=== PATIENT | female | born 1945 | race Caucasian/White ===

== ENCOUNTER 2020-04-17 11:44 | Outpatient (REF) | payer MEDICARE, SELFPAY | END 2020-04-17 11:45 | disposition home or self-care (01) | LOC: HO.BBR 11:44 | PROVIDERS: PCP Internal Medicine; Visit Provider Internal Medicine Hematology & Oncology | DX: D75.1 Secondary polycythemia (principal) | CPT/HCPCS: 85014; 99195 ==

== ENCOUNTER 2020-05-15 10:44 | Outpatient (REF) | payer MEDICARE, SELFPAY | END 2020-05-15 10:45 | disposition home or self-care (01) | LOC: HO.BBR 10:44 | PROVIDERS: PCP Internal Medicine; Visit Provider Internal Medicine Hematology & Oncology | DX: D45 Polycythemia vera (principal) | CPT/HCPCS: 85014; 99195 ==

== ENCOUNTER 2020-06-12 11:16 | Outpatient (REF) | payer MEDICARE, SELFPAY | END 2020-06-12 11:17 | disposition home or self-care (01) | LOC: HO.BBR 11:16 | PROVIDERS: Visit Provider Internal Medicine Hematology & Oncology | DX: D45 Polycythemia vera (principal) | CPT/HCPCS: 36415; 85014; 85018; 99195 ==

== ENCOUNTER 2020-07-18 10:52 | Outpatient (REF) | payer MEDICARE, SELFPAY | END 2020-07-18 10:53 | disposition home or self-care (01) | LOC: HO.BBR 10:52 | PROVIDERS: Visit Provider Internal Medicine Hematology & Oncology | DX: D45 Polycythemia vera (principal) | CPT/HCPCS: 36415; 85014; 85018; 99195 ==

== ENCOUNTER 2020-08-22 11:33 | Outpatient (REF) | payer MEDICARE, SELFPAY ==
[2020-08-22 11:50] LABS: Hematocrit 44.4 % (37-47); Hemoglobin 12.4 g/dl (12.0-16.0)
== END 2020-08-22 11:34 | disposition home or self-care (01) ==
LOC: HO.BBR 11:33
PROVIDERS: Visit Provider Internal Medicine Hematology & Oncology
DX: D45 Polycythemia vera (principal)
CPT/HCPCS: 36415; 85014; 85018; 99195

== ENCOUNTER 2020-09-19 11:41 | Outpatient (REF) | payer MEDICARE, SELFPAY ==
[2020-09-19 11:51] LABS: Hematocrit 45.5 % (37-47); Hemoglobin 12.7 g/dl (12.0-16.0)
== END 2020-09-19 11:42 | disposition home or self-care (01) ==
LOC: HO.BBR 11:41
PROVIDERS: Visit Provider Internal Medicine Hematology & Oncology
DX: D45 Polycythemia vera (principal)
CPT/HCPCS: 36415; 85014; 85018; 99195

== ENCOUNTER 2020-10-20 12:00 | Outpatient (REF) | payer MEDICARE, SELFPAY | END 2020-10-20 12:01 | disposition home or self-care (01) | LOC: HO.BBR 12:00 | PROVIDERS: Visit Provider Internal Medicine Hematology & Oncology | DX: D45 Polycythemia vera (principal) | CPT/HCPCS: 36415; 85014; 85018; 99195 ==

== ENCOUNTER 2020-11-24 11:58 | Outpatient (REF) | payer MEDICARE, SELFPAY | END 2020-11-24 11:59 | disposition home or self-care (01) | LOC: HO.BBR 11:58 | PROVIDERS: Visit Provider Internal Medicine Hematology & Oncology | DX: D45 Polycythemia vera (principal) | CPT/HCPCS: 85014; 85018; 99195 ==

== ENCOUNTER 2020-12-26 11:56 | Outpatient (REF) | payer MEDICARE, SELFPAY ==
[2020-12-26 12:11] LABS: Hematocrit 42.9 % (37-47); Hemoglobin 12.2 g/dl (12.0-16.0)
== END 2020-12-26 11:57 | disposition home or self-care (01) ==
LOC: HO.BBR 11:56
PROVIDERS: Visit Provider Internal Medicine Hematology & Oncology
DX: D45 Polycythemia vera (principal)
CPT/HCPCS: 36415; 85014; 85018; 99195

== ENCOUNTER 2021-01-23 11:55 | Outpatient (REF) | payer MEDICARE, SELFPAY | END 2021-01-23 11:56 | disposition home or self-care (01) | LOC: HO.BBR 11:55 | PROVIDERS: Visit Provider Internal Medicine Hematology & Oncology | DX: D45 Polycythemia vera (principal) | CPT/HCPCS: 85014; 85018; 99195 ==

== ENCOUNTER 2021-02-23 11:49 | Outpatient (REF) | payer MEDICARE, SELFPAY ==
[2021-02-23 12:09] LABS: Hematocrit 40.9 % (37-47); Hemoglobin 11.4 g/dl (12.0-16.0)
== END 2021-02-23 11:50 | disposition home or self-care (01) ==
LOC: HO.BBR 11:49
PROVIDERS: Visit Provider Internal Medicine Hematology & Oncology
DX: D45 Polycythemia vera (principal)
CPT/HCPCS: 36415; 85014; 85018; 99195

== ENCOUNTER 2021-03-19 11:53 | Outpatient (REF) | payer MEDICARE, SELFPAY ==
[2021-03-19 12:07] LABS: MANUAL DIFF FLAG NO
[2021-03-19 12:08] LABS: Basophils Absolute Auto 0.2 X10*3/uL (0.0-0.2); Basophils Percent Auto 0.8 % (0-2); Eosinophils Absolute Auto 0.4 X10*3/uL (0.0-0.4); Hematocrit 42.9 % (37-47); Hemoglobin 12.2 g/dl (12.0-16.0); Imm Gran Abs Auto 0.28 X10*3/uL (0.00-0.03); Imm Gran Pct Auto 1.3 % (0.0-0.4); Lymphocytes Absolute Auto 2.5 X10*3/uL (1.2-4.9); Lymphocytes Percent Auto 12.1 % (20-40); Mean Corpuscular HGB Conc 28.4 g/dl (31.0-35.0); Mean Corpuscular Hemoglobin 18.8 pg (27.0-33.0); Mean Corpuscular Volume 66.1 fL (80-98); Mean Platelet Volume 9.5 fL (9.4-12.3); Monocytes Absolute Auto 0.7 X10*3/uL (0.1-1.2); Monocytes Percent Auto 3.5 % (2-11); Neutrophils Absolute Auto 16.9 X10*3/uL (2.0-8.3); Neutrophils Percent Auto 80.3 % (45-73); Platelet Count 566 X10*3/uL (160-400); Red Blood Count 6.49 X10*6/uL (4.20-5.50)
== END 2021-03-19 11:54 | disposition home or self-care (01) ==
LOC: HO.BBR 11:53
PROVIDERS: Visit Provider Internal Medicine Hematology & Oncology
DX: D45 Polycythemia vera (principal)
CPT/HCPCS: 36415; 85025

== ENCOUNTER 2021-04-20 11:49 | Outpatient (REF) | payer MEDICARE, SELFPAY ==
[2021-04-20 12:09] LABS: MANUAL DIFF FLAG NO
[2021-04-20 12:11] LABS: Basophils Absolute Auto 0.2 X10*3/uL (0.0-0.2); Basophils Percent Auto 0.9 % (0-2); Eosinophils Absolute Auto 0.3 X10*3/uL (0.0-0.4); Eosinophils Percent Auto 1.9 % (0-4); Hematocrit 45.8 % (37-47); Imm Gran Pct Auto 1.2 % (0.0-0.4); Lymphocytes Absolute Auto 2.1 X10*3/uL (1.2-4.9); Mean Corpuscular HGB Conc 28.4 g/dl (31.0-35.0); Mean Corpuscular Hemoglobin 18.5 pg (27.0-33.0); Mean Corpuscular Volume 65.3 fL (80-98); Mean Platelet Volume 9.6 fL (9.4-12.3); Monocytes Absolute Auto 0.6 X10*3/uL (0.1-1.2); Monocytes Percent Auto 3.6 % (2-11); Neutrophils Absolute Auto 13.7 X10*3/uL (2.0-8.3); Neutrophils Percent Auto 80.4 % (45-73); Platelet Count 591 X10*3/uL (160-400); Red Blood Count 7.01 X10*6/uL (4.20-5.50); Red Cell Distribution Width 20.5 % (11.0-16.0); White Blood Count 17.1 X10*3/uL (4.8-10.8)
== END 2021-04-20 11:50 | disposition home or self-care (01) ==
LOC: HO.BBR 11:49
PROVIDERS: Visit Provider Internal Medicine Hematology & Oncology
DX: D45 Polycythemia vera (principal)
CPT/HCPCS: 36415; 85014; 85018; 85025; 99195

== ENCOUNTER 2021-05-22 11:55 | Outpatient (REF) | payer MEDICARE, SELFPAY ==
[2021-05-22 12:05] LABS: MANUAL DIFF FLAG NO
[2021-05-22 12:09] LABS: Basophils Absolute Auto 0.2 X10*3/uL (0.0-0.2); Basophils Percent Auto 0.9 % (0-2); Eosinophils Absolute Auto 0.5 X10*3/uL (0.0-0.4); Eosinophils Percent Auto 2.4 % (0-4); Hemoglobin 12.1 g/dl (12.0-16.0); Imm Gran Abs Auto 0.24 X10*3/uL (0.00-0.03); Imm Gran Pct Auto 1.3 % (0.0-0.4); Lymphocytes Absolute Auto 2.5 X10*3/uL (1.2-4.9); Lymphocytes Percent Auto 13.4 % (20-40); Mean Corpuscular HGB Conc 28.1 g/dl (31.0-35.0); Mean Corpuscular Hemoglobin 18.5 pg (27.0-33.0); Mean Corpuscular Volume 65.6 fL (80.0-98.0); Mean Platelet Volume 9.3 fL (9.4-12.3); Monocytes Absolute Auto 0.7 X10*3/uL (0.1-1.2); Monocytes Percent Auto 3.9 % (2-11); Neutrophils Absolute Auto 14.8 x10*3/uL (2.0-8.3); Neutrophils Percent Auto 78.1 % (45-73); Platelet Count 652 X10*3/uL (160-400); Red Blood Count 6.55 X10*6/uL (4.20-5.50); Red Cell Distribution Width 19.9 % (11.0-16.0); White Blood Count 18.9 X10*3/uL (4.8-10.8)
== END 2021-05-22 11:56 | disposition home or self-care (01) ==
LOC: HO.BBR 11:55
PROVIDERS: Visit Provider Internal Medicine Hematology & Oncology
DX: D45 Polycythemia vera (principal)
CPT/HCPCS: 36415; 85014; 85018; 85025; 99195

== ENCOUNTER 2021-06-26 11:58 | Outpatient (REF) | payer MEDICARE, SELFPAY ==
[2021-06-26 12:14] LABS: MANUAL DIFF FLAG NO
[2021-06-26 12:19] LABS: Basophils Absolute Auto 0.2 X10*3/uL (0.0-0.2); Basophils Percent Auto 0.8 % (0-2); Eosinophils Absolute Auto 0.5 X10*3/uL (0.0-0.4); Eosinophils Percent Auto 2.5 % (0-4); Hematocrit 45.7 % (37.0-47.0); Hemoglobin 12.8 g/dl (12.0-16.0); Imm Gran Abs Auto 0.32 X10*3/uL (0.00-0.03); Imm Gran Pct Auto 1.6 % (0.0-0.4); Lymphocytes Absolute Auto 2.5 X10*3/uL (1.2-4.9); Lymphocytes Percent Auto 12.5 % (20-40); Mean Corpuscular Hemoglobin 18.4 pg (27.0-33.0); Mean Corpuscular Volume 65.7 fL (80.0-98.0); Mean Platelet Volume 9.4 fL (9.4-12.3); Monocytes Absolute Auto 0.6 X10*3/uL (0.1-1.2); Monocytes Percent Auto 3.1 % (2-11); Neutrophils Absolute Auto 15.9 x10*3/uL (2.0-8.3); Neutrophils Percent Auto 79.5 % (45-73); Platelet Count 659 X10*3/uL (160-400); Red Blood Count 6.96 X10*6/uL (4.20-5.50); Red Cell Distribution Width 20.1 % (11.0-16.0)
== END 2021-06-26 11:59 | disposition home or self-care (01) ==
LOC: HO.BBR 11:58
PROVIDERS: Visit Provider Internal Medicine Hematology & Oncology
DX: D45 Polycythemia vera (principal)
CPT/HCPCS: 36415; 85025; 99195

== ENCOUNTER 2021-07-26 11:56 | Outpatient (REF) | payer MEDICARE, SELFPAY ==
[2021-07-26 12:14] LABS: MANUAL DIFF FLAG NO
[2021-07-26 12:19] LABS: Basophils Absolute Auto 0.2 X10*3/uL (0.0-0.2); Basophils Percent Auto 0.9 % (0-2); Eosinophils Absolute Auto 0.4 X10*3/uL (0.0-0.4); Eosinophils Percent Auto 2.4 % (0-4); Hematocrit 41.3 % (37.0-47.0); Hemoglobin 11.7 g/dl (12.0-16.0); Imm Gran Abs Auto 0.17 X10*3/uL (0.00-0.03); Lymphocytes Absolute Auto 2.2 X10*3/uL (1.2-4.9); Lymphocytes Percent Auto 12.9 % (20-40); Mean Corpuscular HGB Conc 28.3 g/dl (31.0-35.0); Mean Corpuscular Hemoglobin 18.5 pg (27.0-33.0); Mean Corpuscular Volume 65.2 fL (80.0-98.0); Mean Platelet Volume 9.6 fL (9.4-12.3); Monocytes Absolute Auto 0.6 X10*3/uL (0.1-1.2); Monocytes Percent Auto 3.5 % (2-11); Neutrophils Absolute Auto 13.2 x10*3/uL (2.0-8.3); Neutrophils Percent Auto 79.3 % (45-73); Platelet Count 608 X10*3/uL (160-400); Red Blood Count 6.33 X10*6/uL (4.20-5.50); Red Cell Distribution Width 19.9 % (11.0-16.0); White Blood Count 16.7 X10*3/uL (4.8-10.8)
== END 2021-07-26 11:57 | disposition home or self-care (01) ==
LOC: HO.BBR 11:56
PROVIDERS: Visit Provider Internal Medicine Hematology & Oncology
DX: D45 Polycythemia vera (principal)
CPT/HCPCS: 36415; 85018; 85025; 99195

== ENCOUNTER 2021-08-30 11:54 | Outpatient (REF) | payer MEDICARE, SELFPAY ==
[2021-08-30 12:03] LABS: MANUAL DIFF FLAG NO
[2021-08-30 12:05] LABS: Basophils Absolute Auto 0.2 X10*3/uL (0.0-0.2); Basophils Percent Auto 0.7 % (0-2); Eosinophils Absolute Auto 0.5 X10*3/uL (0.0-0.4); Eosinophils Percent Auto 2.4 % (0-4); Hematocrit 43.5 % (37.0-47.0); Hemoglobin 11.9 g/dl (12.0-16.0); Imm Gran Abs Auto 0.36 X10*3/uL (0.00-0.03); Imm Gran Pct Auto 1.7 % (0.0-0.4); Lymphocytes Absolute Auto 2.3 X10*3/uL (1.2-4.9); Lymphocytes Percent Auto 11.2 % (20-40); Mean Corpuscular HGB Conc 27.4 g/dl (31.0-35.0); Mean Corpuscular Volume 65.8 fL (80.0-98.0); Mean Platelet Volume 9.3 fL (9.4-12.3); Monocytes Absolute Auto 0.7 X10*3/uL (0.1-1.2); Monocytes Percent Auto 3.2 % (2-11); Neutrophils Absolute Auto 16.8 x10*3/uL (2.0-8.3); Neutrophils Percent Auto 80.8 % (45-73); Platelet Count 624 X10*3/uL (160-400); Red Blood Count 6.61 X10*6/uL (4.20-5.50); Red Cell Distribution Width 20.5 % (11.0-16.0); White Blood Count 20.8 X10*3/uL (4.8-10.8)
== END 2021-08-30 11:55 | disposition home or self-care (01) ==
LOC: HO.BBR 11:54
PROVIDERS: Visit Provider Internal Medicine Hematology & Oncology
DX: D45 Polycythemia vera (principal)
CPT/HCPCS: 36415; 85014; 85018; 85025; 99195

== ENCOUNTER 2021-09-28 11:54 | Outpatient (REF) | payer MEDICARE, SELFPAY ==
[2021-09-28 12:08] LABS: MANUAL DIFF FLAG NO
[2021-09-28 12:09] LABS: Basophils Absolute Auto 0.2 X10*3/uL (0.0-0.2); Basophils Percent Auto 0.8 % (0-2); Eosinophils Absolute Auto 0.4 X10*3/uL (0.0-0.4); Hemoglobin 12.5 g/dl (12.0-16.0); Imm Gran Abs Auto 0.23 X10*3/uL (0.00-0.03); Imm Gran Pct Auto 1.2 % (0.0-0.4); Lymphocytes Absolute Auto 2.1 X10*3/uL (1.2-4.9); Lymphocytes Percent Auto 10.8 % (20-40); Mean Corpuscular HGB Conc 27.8 g/dl (31.0-35.0); Mean Corpuscular Hemoglobin 18.2 pg (27.0-33.0); Mean Corpuscular Volume 65.4 fL (80.0-98.0); Mean Platelet Volume 9.5 fL (9.4-12.3); Monocytes Absolute Auto 0.5 X10*3/uL (0.1-1.2); Monocytes Percent Auto 2.6 % (2-11); Neutrophils Absolute Auto 15.7 x10*3/uL (2.0-8.3); Neutrophils Percent Auto 82.6 % (45-73); Platelet Count 593 X10*3/uL (160-400); Red Blood Count 6.88 X10*6/uL (4.20-5.50); Red Cell Distribution Width 20.7 % (11.0-16.0)
== END 2021-09-28 11:55 | disposition home or self-care (01) ==
LOC: HO.BBR 11:54
PROVIDERS: Visit Provider Internal Medicine Hematology & Oncology
DX: D45 Polycythemia vera (principal)
CPT/HCPCS: 36415; 85014; 85018; 85025; 99195

== ENCOUNTER 2021-10-29 13:54 | Outpatient (REF) | payer MEDICARE, SELFPAY ==
[2021-10-29 14:08] LABS: MANUAL DIFF FLAG NO
[2021-10-29 14:09] LABS: Basophils Absolute Auto 0.1 X10*3/uL (0.0-0.2); Basophils Percent Auto 0.7 % (0-2); Eosinophils Absolute Auto 0.4 X10*3/uL (0.0-0.4); Eosinophils Percent Auto 2.3 % (0-4); Hematocrit 43.9 % (37.0-47.0); Hemoglobin 12.4 g/dl (12.0-16.0); Imm Gran Abs Auto 0.17 X10*3/uL (0.00-0.03); Lymphocytes Absolute Auto 2.1 X10*3/uL (1.2-4.9); Lymphocytes Percent Auto 11.5 % (20-40); Mean Corpuscular HGB Conc 28.2 g/dl (31.0-35.0); Mean Corpuscular Hemoglobin 18.4 pg (27.0-33.0); Mean Corpuscular Volume 65.1 fL (80.0-98.0); Mean Platelet Volume 9.1 fL (9.4-12.3); Monocytes Absolute Auto 0.6 X10*3/uL (0.1-1.2); Monocytes Percent Auto 3.3 % (2-11); Neutrophils Absolute Auto 14.5 x10*3/uL (2.0-8.3); Neutrophils Percent Auto 81.2 % (45-73); Platelet Count 544 X10*3/uL (160-400); Red Blood Count 6.74 X10*6/uL (4.20-5.50); White Blood Count 17.8 X10*3/uL (4.8-10.8)
== END 2021-10-29 13:55 | disposition home or self-care (01) ==
LOC: HO.BBR 13:54
PROVIDERS: Visit Provider Internal Medicine Hematology & Oncology
DX: D45 Polycythemia vera (principal)
CPT/HCPCS: 36415; 85014; 85018; 85025; 99195

== ENCOUNTER 2021-11-27 10:53 | Outpatient (REF) | payer MEDICARE, SELFPAY ==
[2021-11-27 11:07] LABS: Basophils Absolute Auto 0.2 X10*3/uL (0.0-0.2); Basophils Percent Auto 0.8 % (0-2); Eosinophils Absolute Auto 0.4 X10*3/uL (0.0-0.4); Hematocrit 47.6 % (37.0-47.0); Imm Gran Abs Auto 0.18 X10*3/uL (0.00-0.03); Imm Gran Pct Auto 0.9 % (0.0-0.4); Lymphocytes Absolute Auto 1.7 X10*3/uL (1.2-4.9); MANUAL DIFF FLAG NO; Mean Corpuscular HGB Conc 27.3 g/dl (31.0-35.0); Mean Corpuscular Hemoglobin 18.2 pg (27.0-33.0); Mean Corpuscular Volume 66.7 fL (80.0-98.0); Mean Platelet Volume 9.3 fL (9.4-12.3); Monocytes Absolute Auto 0.5 X10*3/uL (0.1-1.2); Monocytes Percent Auto 2.4 % (2-11); Neutrophils Absolute Auto 16.3 x10*3/uL (2.0-8.3); Neutrophils Percent Auto 84.9 % (45-73); Platelet Count 596 X10*3/uL (160-400); Red Blood Count 7.14 X10*6/uL (4.20-5.50); Red Cell Distribution Width 21.2 % (11.0-16.0); White Blood Count 19.2 X10*3/uL (4.8-10.8)
== END 2021-11-27 10:54 | disposition home or self-care (01) ==
LOC: HO.BBR 10:53
PROVIDERS: Visit Provider Internal Medicine Hematology & Oncology
DX: D45 Polycythemia vera (principal)
CPT/HCPCS: 36415; 85014; 85025; 99195

== ENCOUNTER 2021-12-28 12:00 | Outpatient (REF) | payer MEDICARE, SELFPAY ==
[2021-12-28 12:23] LABS: Basophils Absolute Auto 0.1 X10*3/uL (0.0-0.2); Basophils Percent Auto 0.7 % (0-2); Eosinophils Absolute Auto 0.4 X10*3/uL (0.0-0.4); Hematocrit 42.7 % (37.0-47.0); Imm Gran Abs Auto 0.22 X10*3/uL (0.00-0.03); Imm Gran Pct Auto 1.2 % (0.0-0.4); Lymphocytes Percent Auto 10.7 % (20-40); MANUAL DIFF FLAG SCAN; Mean Corpuscular HGB Conc 28.1 g/dl (31.0-35.0); Mean Corpuscular Hemoglobin 18.6 pg (27.0-33.0); Mean Corpuscular Volume 66.1 fL (80.0-98.0); Mean Platelet Volume 9.6 fL (9.4-12.3); Monocytes Absolute Auto 0.5 X10*3/uL (0.1-1.2); Monocytes Percent Auto 2.7 % (2-11); Neutrophils Absolute Auto 15.8 x10*3/uL (2.0-8.3); Neutrophils Percent Auto 82.7 % (45-73); Platelet Count 586 X10*3/uL (160-400); Red Blood Count 6.46 X10*6/uL (4.20-5.50); Red Cell Distribution Width 19.9 % (11.0-16.0); SCAN SMEAR FLAG 1; White Blood Count 19.1 X10*3/uL (4.8-10.8)
[2021-12-28 12:53] LABS: SLIDE REVIEW VERIFIED
== END 2021-12-28 12:01 | disposition home or self-care (01) ==
LOC: HO.BBR 12:00
PROVIDERS: Visit Provider Internal Medicine Hematology & Oncology
DX: D45 Polycythemia vera (principal)
CPT/HCPCS: 36415; 85014; 85018; 85025; 99195

== ENCOUNTER 2022-01-24 11:53 | Outpatient (REF) | payer MEDICARE, SELFPAY | END 2022-01-24 11:54 | disposition home or self-care (01) | LOC: HO.BBR 11:53 | PROVIDERS: Visit Provider Internal Medicine Hematology & Oncology | DX: D45 Polycythemia vera (principal) | CPT/HCPCS: 85014 ==

== ENCOUNTER 2022-02-28 12:54 | Outpatient (REF) | payer MEDICARE, SELFPAY | END 2022-02-28 12:55 | disposition home or self-care (01) | LOC: HO.BBR 12:54 | PROVIDERS: Visit Provider Internal Medicine Hematology & Oncology | DX: D45 Polycythemia vera (principal) | CPT/HCPCS: 85014; 99195 ==

== ENCOUNTER 2022-04-05 11:51 | Outpatient (REF) | payer MEDICARE, SELFPAY ==
[2022-04-05 12:07] LABS: MANUAL DIFF FLAG NO
[2022-04-05 12:11] LABS: Basophils Absolute Auto 0.2 X10*3/uL (0.0-0.2); Basophils Percent Auto 0.9 % (0-2); Eosinophils Absolute Auto 0.5 X10*3/uL (0.0-0.4); Eosinophils Percent Auto 2.2 % (0-4); Hematocrit 45.4 % (37.0-47.0); Hemoglobin 12.5 g/dl (12.0-16.0); Imm Gran Abs Auto 0.26 X10*3/uL (0.00-0.03); Imm Gran Pct Auto 1.2 % (0.0-0.4); Lymphocytes Percent Auto 9.4 % (20-40); Mean Corpuscular HGB Conc 27.5 g/dl (31.0-35.0); Mean Corpuscular Hemoglobin 18.1 pg (27.0-33.0); Mean Corpuscular Volume 65.9 fL (80.0-98.0); Mean Platelet Volume 9.4 fL (9.4-12.3); Monocytes Absolute Auto 0.6 X10*3/uL (0.1-1.2); Monocytes Percent Auto 2.8 % (2-11); Neutrophils Absolute Auto 17.6 x10*3/uL (2.0-8.3); Neutrophils Percent Auto 83.5 % (45-73); Platelet Count 685 X10*3/uL (160-400); Red Blood Count 6.89 X10*6/uL (4.20-5.50); White Blood Count 21.1 X10*3/uL (4.8-10.8)
[2022-04-05 12:48] LABS: Alanine Aminotransferase 15 U/L (0-31); Albumin Level 4.4 g/dL (3.5-5.0); Alkaline Phosphatase 98 U/L (39-117); Anion Gap 11 (12-20); Aspartate Amino Transferase 20 U/L (5-31); Bilirubin Total 0.6 mg/dL (0.0-1.0); Blood Urea Nitrogen 9 mg/dL (9-16); Calcium 9.1 mg/dL (8.4-10.2); Carbon Dioxide 27 mmol/L (22-29); Chloride 102 mmol/L (96-108); Estimated Glomerular Filt Rate > 60; Glucose Random 114 mg/dL (60-115); Iron 17 mcg/dL (30-160); Percent Iron Saturation 4 % (15-50); Potassium 4.3 mmol/L (3.3-5.1); Sodium 136 mmol/L (135-145); Total Iron Binding Capacity 429 mcg/dL (228-428); Total Protein 7.1 g/dL (6.5-8.0); Unsaturated Iron Binding 412 ug/dL
[2022-04-05 12:54] LABS: Ferritin 2 ng/mL (10-250)
== END 2022-04-05 11:52 | disposition home or self-care (01) ==
LOC: HO.BBR 11:51
PROVIDERS: Visit Provider Internal Medicine Hematology & Oncology
DX: D45 Polycythemia vera (principal)
CPT/HCPCS: 36415; 80053; 82728; 83540; 85014; 85018; 85025; 99195

== ENCOUNTER 2022-05-06 11:57 | Outpatient (REF) | payer MEDICARE, SELFPAY ==
[2022-05-06 12:18] LABS: Basophils Absolute Auto 0.2 X10*3/uL (0.0-0.2); Basophils Percent Auto 0.9 % (0-2); Eosinophils Absolute Auto 0.4 X10*3/uL (0.0-0.4); Eosinophils Percent Auto 1.9 % (0-4); Hematocrit 41.1 % (37.0-47.0); Hemoglobin 11.3 g/dl (12.0-16.0); Imm Gran Abs Auto 0.25 X10*3/uL (0.00-0.03); Imm Gran Pct Auto 1.1 % (0.0-0.4); Lymphocytes Absolute Auto 2.5 X10*3/uL (1.2-4.9); Lymphocytes Percent Auto 11.4 % (20-40); MANUAL DIFF FLAG NO; Mean Corpuscular HGB Conc 27.5 g/dl (31.0-35.0); Mean Corpuscular Hemoglobin 17.9 pg (27.0-33.0); Mean Platelet Volume 9.4 fL (9.4-12.3); Monocytes Absolute Auto 0.7 X10*3/uL (0.1-1.2); Neutrophils Absolute Auto 18.3 x10*3/uL (2.0-8.3); Neutrophils Percent Auto 81.7 % (45-73); Platelet Count 664 X10*3/uL (160-400); Red Blood Count 6.32 X10*6/uL (4.20-5.50); Red Cell Distribution Width 19.9 % (11.0-16.0); White Blood Count 22.3 X10*3/uL (4.8-10.8)
[2022-05-06 13:24] LABS: Alanine Aminotransferase 14 U/L (0-31); Albumin Level 4.4 g/dL (3.5-5.0); Alkaline Phosphatase 103 U/L (39-117); Anion Gap 18 (12-20); Aspartate Amino Transferase 30 U/L (5-31); Bilirubin Total 0.8 mg/dL (0.0-1.0); Blood Urea Nitrogen 11 mg/dL (9-16); Calcium 9.2 mg/dL (8.4-10.2); Carbon Dioxide 21 mmol/L (22-29); Chloride 101 mmol/L (96-108); Estimated Glomerular Filt Rate > 60; Glucose Random 73 mg/dL (60-115); Iron 24 mcg/dL (30-160); Percent Iron Saturation 5 % (15-50); Potassium 4.9 mmol/L (3.3-5.1); Sodium 135 mmol/L (135-145); Total Iron Binding Capacity 446 mcg/dL (228-428); Total Protein 7.2 g/dL (6.5-8.0); Unsaturated Iron Binding 422 ug/dL
[2022-05-06 13:42] LABS: Ferritin 7 ng/mL (10-250)
== END 2022-05-06 11:58 | disposition home or self-care (01) ==
LOC: HO.BBR 11:57
PROVIDERS: Visit Provider Internal Medicine Hematology & Oncology
DX: D45 Polycythemia vera (principal)
CPT/HCPCS: 36415; 80053; 82728; 83540; 85014; 85018; 85025; 99195

== ENCOUNTER 2022-06-06 12:03 | Outpatient (REF) | payer MEDICARE, SELFPAY ==
[2022-06-06 12:22] LABS: Basophils Absolute Auto 0.2 X10*3/uL (0.0-0.2); Basophils Percent Auto 0.9 % (0-2); Eosinophils Absolute Auto 0.5 X10*3/uL (0.0-0.4); Eosinophils Percent Auto 2.2 % (0-4); Hematocrit 42.3 % (37.0-47.0); Hemoglobin 11.6 g/dl (12.0-16.0); Imm Gran Abs Auto 0.35 X10*3/uL (0.00-0.03); Imm Gran Pct Auto 1.7 % (0.0-0.4); Lymphocytes Absolute Auto 2.4 X10*3/uL (1.2-4.9); Lymphocytes Percent Auto 11.7 % (20-40); MANUAL DIFF FLAG NO; Mean Corpuscular HGB Conc 27.4 g/dl (31.0-35.0); Mean Corpuscular Volume 65.6 fL (80.0-98.0); Mean Platelet Volume 9.3 fL (9.4-12.3); Monocytes Absolute Auto 0.5 X10*3/uL (0.1-1.2); Monocytes Percent Auto 2.6 % (2-11); Neutrophils Absolute Auto 16.6 x10*3/uL (2.0-8.3); Neutrophils Percent Auto 80.9 % (45-73); Platelet Count 631 X10*3/uL (160-400); Red Blood Count 6.45 X10*6/uL (4.20-5.50); Red Cell Distribution Width 20.3 % (11.0-16.0); White Blood Count 20.5 X10*3/uL (4.8-10.8)
[2022-06-06 13:34] LABS: Alanine Aminotransferase 12 U/L (0-31); Albumin Level 4.3 g/dL (3.5-5.0); Alkaline Phosphatase 102 U/L (39-117); Anion Gap 10 (12-20); Aspartate Amino Transferase 21 U/L (5-31); Bilirubin Total 0.9 mg/dL (0.0-1.0); Blood Urea Nitrogen 8 mg/dL (9-16); Calcium 9.2 mg/dL (8.4-10.2); Carbon Dioxide 27 mmol/L (22-29); Chloride 97 mmol/L (96-108); Estimated Glomerular Filt Rate > 60; Ferritin 6 ng/mL (10-250); Glucose Random 92 mg/dL (60-115); Iron 16 mcg/dL (30-160); Percent Iron Saturation 4 % (15-50); Potassium 4.3 mmol/L (3.3-5.1); Sodium 130 mmol/L (135-145); Total Iron Binding Capacity 370 mcg/dL (228-428); Total Protein 6.9 g/dL (6.5-8.0); Unsaturated Iron Binding 354 ug/dL
== END 2022-06-06 12:04 | disposition home or self-care (01) ==
LOC: HO.BBR 12:03
PROVIDERS: Visit Provider Internal Medicine Hematology & Oncology
DX: D45 Polycythemia vera (principal)
CPT/HCPCS: 36415; 80053; 82728; 83540; 85018; 85025; 99195

== ENCOUNTER 2022-07-11 11:53 | Outpatient (REF) | payer MEDICARE, SELFPAY ==
[2022-07-11 12:10] LABS: MANUAL DIFF FLAG NO
[2022-07-11 12:16] LABS: Basophils Absolute Auto 0.2 X10*3/uL (0.0-0.2); Basophils Percent Auto 0.9 % (0-2); Eosinophils Absolute Auto 0.4 X10*3/uL (0.0-0.4); Eosinophils Percent Auto 1.9 % (0-4); Hematocrit 45.8 % (37.0-47.0); Hemoglobin 12.4 g/dl (12.0-16.0); Imm Gran Abs Auto 0.23 X10*3/uL (0.00-0.03); Imm Gran Pct Auto 1.1 % (0.0-0.4); Lymphocytes Absolute Auto 2.2 X10*3/uL (1.2-4.9); Lymphocytes Percent Auto 10.3 % (20-40); Mean Corpuscular HGB Conc 27.1 g/dl (31.0-35.0); Mean Corpuscular Volume 66.7 fL (80.0-98.0); Mean Platelet Volume 9.3 fL (9.4-12.3); Monocytes Absolute Auto 0.7 X10*3/uL (0.1-1.2); Neutrophils Percent Auto 82.8 % (45-73); Platelet Count 631 X10*3/uL (160-400); Red Blood Count 6.87 X10*6/uL (4.20-5.50); Red Cell Distribution Width 21.3 % (11.0-16.0); White Blood Count 21.7 X10*3/uL (4.8-10.8)
[2022-07-11 14:30] LABS: Alanine Aminotransferase 12 U/L (0-31); Albumin Level 4.2 g/dL (3.5-5.0); Alkaline Phosphatase 120 U/L (39-117); Anion Gap 13 (12-20); Aspartate Amino Transferase 25 U/L (5-31); Bilirubin Total 0.9 mg/dL (0.0-1.0); Blood Urea Nitrogen 7 mg/dL (9-16); Calcium 9.5 mg/dL (8.4-10.2); Carbon Dioxide 27 mmol/L (22-29); Chloride 103 mmol/L (96-108); Estimated Glomerular Filt Rate > 60; Glucose Random 108 mg/dL (60-115); Iron 17 mcg/dL (30-160); Percent Iron Saturation 5 % (15-50); Potassium 5.1 mmol/L (3.3-5.1); Sodium 138 mmol/L (135-145); Total Iron Binding Capacity 359 mcg/dL (228-428); Unsaturated Iron Binding 342 ug/dL
[2022-07-11 14:55] LABS: Ferritin 7 ng/mL (10-250)
== END 2022-07-11 11:54 | disposition home or self-care (01) ==
LOC: HO.BBR 11:53
PROVIDERS: Visit Provider Internal Medicine Hematology & Oncology
DX: D45 Polycythemia vera (principal)
CPT/HCPCS: 36415; 80053; 82728; 83540; 85018; 85025; 99195

== ENCOUNTER 2022-08-14 11:56 | Outpatient (REF) | payer MEDICARE, SELFPAY ==
[2022-08-14 12:14] LABS: MANUAL DIFF FLAG NO
[2022-08-14 12:17] LABS: Basophils Absolute Auto 0.2 X10*3/uL (0.0-0.2); Basophils Percent Auto 0.9 % (0-2); Eosinophils Absolute Auto 0.4 X10*3/uL (0.0-0.4); Eosinophils Percent Auto 2.1 % (0-4); Hematocrit 40.9 % (37.0-47.0); Hemoglobin 11.2 g/dl (12.0-16.0); Imm Gran Abs Auto 0.17 X10*3/uL (0.00-0.03); Imm Gran Pct Auto 0.9 % (0.0-0.4); Lymphocytes Percent Auto 10.4 % (20-40); Mean Corpuscular HGB Conc 27.4 g/dl (31.0-35.0); Mean Corpuscular Hemoglobin 17.7 pg (27.0-33.0); Monocytes Absolute Auto 0.6 X10*3/uL (0.1-1.2); Monocytes Percent Auto 3.2 % (2-11); Neutrophils Absolute Auto 15.4 x10*3/uL (2.0-8.3); Neutrophils Percent Auto 82.5 % (45-73); Platelet Count 592 X10*3/uL (160-400); Red Blood Count 6.31 X10*6/uL (4.20-5.50); Red Cell Distribution Width 19.5 % (11.0-16.0); White Blood Count 18.7 X10*3/uL (4.8-10.8)
[2022-08-14 12:18] LABS: Mean Corpuscular Volume 64.8 fL (80.0-98.0)
[2022-08-14 14:05] LABS: Alanine Aminotransferase 16 U/L (0-31); Albumin Level 4.2 g/dL (3.5-5.0); Alkaline Phosphatase 118 U/L (39-117); Anion Gap 16 (12-20); Aspartate Amino Transferase 26 U/L (5-31); Bilirubin Total 1.5 mg/dL (0.0-1.0); Blood Urea Nitrogen 10 mg/dL (9-16); Calcium 9.3 mg/dL (8.4-10.2); Carbon Dioxide 24 mmol/L (22-29); Chloride 102 mmol/L (96-108); Estimated Glomerular Filt Rate > 60; Glucose Random 76 mg/dL (60-115); Iron 45 mcg/dL (30-160); Percent Iron Saturation 12 % (15-50); Potassium 5.2 mmol/L (3.3-5.1); Sodium 137 mmol/L (135-145); Total Iron Binding Capacity 383 mcg/dL (228-428); Total Protein 6.8 g/dL (6.5-8.0); Unsaturated Iron Binding 338 ug/dL
[2022-08-14 14:22] LABS: Ferritin 6 ng/mL (10-250)
== END 2022-08-14 11:57 | disposition home or self-care (01) ==
LOC: HO.BBR 11:56
PROVIDERS: Visit Provider Internal Medicine Hematology & Oncology
DX: D45 Polycythemia vera (principal)
CPT/HCPCS: 36415; 80053; 82728; 83540; 85018; 85025; 99195

== ENCOUNTER 2022-09-10 11:57 | Outpatient (REF) | payer MEDICARE, SELFPAY ==
[2022-09-10 12:15] LABS: MANUAL DIFF FLAG NO
[2022-09-10 12:17] LABS: Basophils Absolute Auto 0.2 X10*3/uL (0.0-0.2); Basophils Percent Auto 1.1 % (0-2); Eosinophils Absolute Auto 0.4 X10*3/uL (0.0-0.4); Hematocrit 40.9 % (37.0-47.0); Hemoglobin 11.4 g/dl (12.0-16.0); Imm Gran Pct Auto 1.6 % (0.0-0.4); Lymphocytes Percent Auto 10.7 % (20-40); Mean Corpuscular HGB Conc 27.9 g/dl (31.0-35.0); Mean Corpuscular Hemoglobin 18.1 pg (27.0-33.0); Mean Platelet Volume 9.8 fL (9.4-12.3); Monocytes Absolute Auto 0.6 X10*3/uL (0.1-1.2); Monocytes Percent Auto 3.2 % (2-11); Neutrophils Absolute Auto 15.4 x10*3/uL (2.0-8.3); Neutrophils Percent Auto 81.4 % (45-73); Platelet Count 654 X10*3/uL (160-400); Red Cell Distribution Width 19.8 % (11.0-16.0); White Blood Count 18.9 X10*3/uL (4.8-10.8)
[2022-09-10 12:20] LABS: Mean Corpuscular Volume 64.9 fL (80.0-98.0)
[2022-09-10 13:42] LABS: Alanine Aminotransferase 11 U/L (0-31); Albumin Level 4.4 g/dL (3.5-5.0); Alkaline Phosphatase 88 U/L (39-117); Anion Gap 14 (12-20); Aspartate Amino Transferase 19 U/L (5-31); Bilirubin Total 1.3 mg/dL (0.0-1.0); Blood Urea Nitrogen 9 mg/dL (9-16); Calcium 9.6 mg/dL (8.4-10.2); Carbon Dioxide 26 mmol/L (22-29); Chloride 100 mmol/L (96-108); Estimated Glomerular Filt Rate > 60; Glucose Random 83 mg/dL (60-115); Iron 16 mcg/dL (30-160); Percent Iron Saturation 4 % (15-50); Potassium 4.5 mmol/L (3.3-5.1); Sodium 135 mmol/L (135-145); Total Iron Binding Capacity 375 mcg/dL (228-428); Total Protein 6.8 g/dL (6.5-8.0); Unsaturated Iron Binding 359 ug/dL
[2022-09-10 13:51] LABS: Ferritin 4 ng/mL (10-250)
== END 2022-09-10 11:58 | disposition home or self-care (01) ==
LOC: HO.BBR 11:57
PROVIDERS: Visit Provider Internal Medicine Hematology & Oncology
DX: D45 Polycythemia vera (principal)
CPT/HCPCS: 36415; 80053; 82728; 83540; 85018; 85025; 99195

== ENCOUNTER 2022-10-17 11:52 | Outpatient (REF) | payer MEDICARE, SELFPAY ==
[2022-10-17 12:02] LABS: MANUAL DIFF FLAG NO
[2022-10-17 12:08] LABS: Basophils Absolute Auto 0.2 X10*3/uL (0.0-0.2); Basophils Percent Auto 1.1 % (0-2); Eosinophils Absolute Auto 0.4 X10*3/uL (0.0-0.4); Hematocrit 41.6 % (37.0-47.0); Hemoglobin 11.4 g/dl (12.0-16.0); Imm Gran Pct Auto 1.1 % (0.0-0.4); Lymphocytes Percent Auto 10.4 % (20-40); Mean Corpuscular HGB Conc 27.4 g/dl (31.0-35.0); Mean Corpuscular Hemoglobin 17.6 pg (27.0-33.0); Mean Platelet Volume 9.3 fL (9.4-12.3); Monocytes Absolute Auto 0.7 X10*3/uL (0.1-1.2); Monocytes Percent Auto 3.5 % (2-11); Neutrophils Absolute Auto 15.4 x10*3/uL (2.0-8.3); Neutrophils Percent Auto 81.9 % (45-73); Platelet Count 650 X10*3/uL (160-400); Red Blood Count 6.47 X10*6/uL (4.20-5.50); Red Cell Distribution Width 20.8 % (11.0-16.0); White Blood Count 18.8 X10*3/uL (4.8-10.8)
[2022-10-17 12:11] LABS: Mean Corpuscular Volume 64.3 fL (80.0-98.0)
[2022-10-17 12:55] LABS: Alanine Aminotransferase 14 U/L (0-31); Albumin Level 4.2 g/dL (3.5-5.0); Alkaline Phosphatase 100 U/L (39-117); Anion Gap 12 (12-20); Aspartate Amino Transferase 21 U/L (5-31); Bilirubin Total 1.2 mg/dL (0.0-1.0); Blood Urea Nitrogen 8 mg/dL (9-16); Calcium 9.4 mg/dL (8.4-10.2); Carbon Dioxide 27 mmol/L (22-29); Chloride 101 mmol/L (96-108); Estimated Glomerular Filt Rate > 60; Glucose Random 86 mg/dL (60-115); Iron 19 mcg/dL (30-160); Percent Iron Saturation 5 % (15-50); Potassium 4.6 mmol/L (3.3-5.1); Sodium 135 mmol/L (135-145); Total Iron Binding Capacity 351 mcg/dL (228-428); Total Protein 6.6 g/dL (6.5-8.0); Unsaturated Iron Binding 332 ug/dL
[2022-10-17 13:11] LABS: Ferritin 5 ng/mL (10-250)
== END 2022-10-17 11:53 | disposition home or self-care (01) ==
LOC: HO.BBR 11:52
PROVIDERS: Visit Provider Internal Medicine Hematology & Oncology
DX: D45 Polycythemia vera (principal)
CPT/HCPCS: 36415; 80053; 82728; 83540; 85025

== ENCOUNTER 2022-11-19 12:28 | Outpatient (REF) | payer MEDICARE, SELFPAY ==
[2022-11-19 12:47] LABS: MANUAL DIFF FLAG NO
[2022-11-19 12:48] LABS: Basophils Absolute Auto 0.2 X10*3/uL (0.0-0.2); Eosinophils Absolute Auto 0.5 X10*3/uL (0.0-0.4); Eosinophils Percent Auto 2.4 % (0-4); Hematocrit 42.5 % (37.0-47.0); Hemoglobin 11.6 g/dl (12.0-16.0); Imm Gran Abs Auto 0.22 X10*3/uL (0.00-0.03); Imm Gran Pct Auto 1.1 % (0.0-0.4); Lymphocytes Absolute Auto 2.4 X10*3/uL (1.2-4.9); Lymphocytes Percent Auto 11.6 % (20-40); Mean Corpuscular HGB Conc 27.3 g/dl (31.0-35.0); Mean Corpuscular Hemoglobin 17.7 pg (27.0-33.0); Mean Corpuscular Volume 64.8 fL (80.0-98.0); Mean Platelet Volume 9.1 fL (9.4-12.3); Monocytes Absolute Auto 0.7 X10*3/uL (0.1-1.2); Monocytes Percent Auto 3.2 % (2-11); Neutrophils Absolute Auto 16.5 x10*3/uL (2.0-8.3); Neutrophils Percent Auto 80.7 % (45-73); Platelet Count 706 X10*3/uL (160-400); Red Blood Count 6.56 X10*6/uL (4.20-5.50); White Blood Count 20.5 X10*3/uL (4.8-10.8)
[2022-11-19 13:27] LABS: Alanine Aminotransferase 14 U/L (0-31); Albumin Level 4.3 g/dL (3.5-5.0); Alkaline Phosphatase 110 U/L (39-117); Anion Gap 11 (12-20); Aspartate Amino Transferase 22 U/L (5-31); Bilirubin Total 1.1 mg/dL (0.0-1.0); Blood Urea Nitrogen 11 mg/dL (9-16); Calcium 10.2 mg/dL (8.4-10.2); Carbon Dioxide 28 mmol/L (22-29); Chloride 102 mmol/L (96-108); Estimated Glomerular Filt Rate > 60; Glucose Random 82 mg/dL (60-115); Iron 17 mcg/dL (30-160); Percent Iron Saturation 4 % (15-50); Potassium 5.2 mmol/L (3.3-5.1); Sodium 136 mmol/L (135-145); Total Iron Binding Capacity 379 mcg/dL (228-428); Unsaturated Iron Binding 362 ug/dL
[2022-11-19 13:46] LABS: Ferritin 4 ng/mL (10-250)
== END 2022-11-19 12:29 | disposition home or self-care (01) ==
LOC: HO.BBR 12:28
PROVIDERS: Visit Provider Internal Medicine Hematology & Oncology
DX: D45 Polycythemia vera (principal)
CPT/HCPCS: 36415; 80053; 82728; 83540; 85025

== ENCOUNTER 2022-12-18 12:26 | Outpatient (REF) | payer MEDICARE, SELFPAY ==
[2022-12-18 12:40] LABS: MANUAL DIFF FLAG NO
[2022-12-18 12:41] LABS: Basophils Absolute Auto 0.2 X10*3/uL (0.0-0.2); Basophils Percent Auto 0.8 % (0-2); Eosinophils Absolute Auto 0.4 X10*3/uL (0.0-0.4); Eosinophils Percent Auto 2.2 % (0-4); Hematocrit 42.3 % (37.0-47.0); Hemoglobin 11.5 g/dl (12.0-16.0); Imm Gran Abs Auto 0.26 X10*3/uL (0.00-0.03); Imm Gran Pct Auto 1.3 % (0.0-0.4); Lymphocytes Absolute Auto 2.6 X10*3/uL (1.2-4.9); Lymphocytes Percent Auto 12.7 % (20-40); Mean Corpuscular HGB Conc 27.2 g/dl (31.0-35.0); Mean Corpuscular Hemoglobin 17.7 pg (27.0-33.0); Mean Corpuscular Volume 65.2 fL (80.0-98.0); Mean Platelet Volume 9.4 fL (9.4-12.3); Monocytes Absolute Auto 0.7 X10*3/uL (0.1-1.2); Monocytes Percent Auto 3.3 % (2-11); Neutrophils Absolute Auto 16.3 x10*3/uL (2.0-8.3); Neutrophils Percent Auto 79.7 % (45-73); Platelet Count 678 X10*3/uL (160-400); Red Blood Count 6.49 X10*6/uL (4.20-5.50); Red Cell Distribution Width 20.6 % (11.0-16.0); White Blood Count 20.4 X10*3/uL (4.8-10.8)
[2022-12-18 13:52] LABS: Alanine Aminotransferase 12 U/L (0-31); Albumin Level 4.2 g/dL (3.5-5.0); Alkaline Phosphatase 95 U/L (39-117); Anion Gap 12 (12-20); Aspartate Amino Transferase 22 U/L (5-31); Bilirubin Total 1.2 mg/dL (0.0-1.0); Blood Urea Nitrogen 11 mg/dL (9-16); Calcium 9.1 mg/dL (8.4-10.2); Carbon Dioxide 27 mmol/L (22-29); Chloride 100 mmol/L (96-108); Estimated Glomerular Filt Rate > 60; Glucose Random 86 mg/dL (60-115); Iron 16 mcg/dL (30-160); Percent Iron Saturation 4 % (15-50); Potassium 4.6 mmol/L (3.3-5.1); Sodium 134 mmol/L (135-145); Total Iron Binding Capacity 380 mcg/dL (228-428); Total Protein 6.8 g/dL (6.5-8.0); Unsaturated Iron Binding 364 ug/dL
[2022-12-18 14:01] LABS: Ferritin 7 ng/mL (10-250)
== END 2022-12-18 12:27 | disposition home or self-care (01) ==
LOC: HO.BBR 12:26
PROVIDERS: Visit Provider Internal Medicine Hematology & Oncology
DX: D45 Polycythemia vera (principal)
CPT/HCPCS: 36415; 80053; 82728; 83540; 85014; 85018; 85025; 99195

== ENCOUNTER 2023-01-17 12:35 | Outpatient (REF) | payer MEDICARE, SELFPAY | END 2023-01-17 12:36 | disposition home or self-care (01) | LOC: HO.BBR 12:35 | PROVIDERS: Visit Provider Internal Medicine Hematology & Oncology | DX: D45 Polycythemia vera (principal) | CPT/HCPCS: 85014; 85018; 99195 ==

== ENCOUNTER 2023-02-17 12:27 | Outpatient (REF) | payer MEDICARE, SELFPAY | END 2023-02-17 12:28 | disposition home or self-care (01) | LOC: HO.BBR 12:27 | PROVIDERS: Visit Provider Internal Medicine Hematology & Oncology | DX: D45 Polycythemia vera (principal) | CPT/HCPCS: 85014; 99195 ==

== ENCOUNTER 2023-03-24 12:27 | Outpatient (REF) | payer MEDICARE, SELFPAY | END 2023-03-24 12:28 | disposition home or self-care (01) | LOC: HO.BBR 12:27 | PROVIDERS: Visit Provider Internal Medicine Hematology & Oncology | DX: D45 Polycythemia vera (principal) | CPT/HCPCS: 85014 ==

== ENCOUNTER 2023-04-23 11:58 | Outpatient (REF) | payer MEDICARE, SELFPAY | END 2023-04-23 11:59 | disposition home or self-care (01) | LOC: HO.BBR 11:58 | PROVIDERS: Visit Provider Internal Medicine Hematology & Oncology | DX: D45 Polycythemia vera (principal) | CPT/HCPCS: 85014; 85018; 99195 ==

== ENCOUNTER 2023-05-21 12:24 | Outpatient (REF) | payer MEDICARE, SELFPAY | END 2023-05-21 12:25 | disposition home or self-care (01) | LOC: HO.BBR 12:24 | PROVIDERS: Visit Provider Internal Medicine Hematology & Oncology | DX: D45 Polycythemia vera (principal) | CPT/HCPCS: 85014; 85018; 99195 ==

== ENCOUNTER 2023-06-25 12:27 | Outpatient (REF) | payer MEDICARE, SELFPAY | END 2023-06-25 12:28 | disposition home or self-care (01) | LOC: HO.BBR 12:27 | PROVIDERS: Visit Provider Internal Medicine Hematology & Oncology | DX: D45 Polycythemia vera (principal) | CPT/HCPCS: 85014; 85018; 99195 ==

== ENCOUNTER 2023-07-30 12:25 | Outpatient (REF) | payer MEDICARE, SELFPAY | END 2023-07-30 12:26 | disposition home or self-care (01) | LOC: HO.BBR 12:25 | PROVIDERS: PCP Internal Medicine; Visit Provider Internal Medicine Hematology & Oncology | DX: D45 Polycythemia vera (principal) | CPT/HCPCS: 85014; 85018; 99195 ==

== ENCOUNTER 2023-09-01 12:28 | Outpatient (REF) | payer MEDICARE, SELFPAY | END 2023-09-01 12:29 | disposition home or self-care (01) | LOC: HO.BBR 12:28 | PROVIDERS: PCP Internal Medicine; Visit Provider Internal Medicine Hematology & Oncology | DX: D45 Polycythemia vera (principal) | CPT/HCPCS: 85014 ==

== ENCOUNTER 2023-09-29 12:34 | Outpatient (REF) | payer MEDICARE, SELFPAY | END 2023-09-29 12:35 | disposition home or self-care (01) | LOC: HO.BBR 12:34 | PROVIDERS: PCP Internal Medicine; Visit Provider Internal Medicine Hematology & Oncology | DX: D45 Polycythemia vera (principal) | CPT/HCPCS: 85014; 85018; 99195 ==

== ENCOUNTER 2023-10-30 12:39 | Outpatient (REF) | payer MEDICARE, SELFPAY | END 2023-10-30 12:40 | disposition home or self-care (01) | LOC: HO.BBR 12:39 | PROVIDERS: PCP Internal Medicine; Visit Provider Internal Medicine Hematology & Oncology | DX: D45 Polycythemia vera (principal) | CPT/HCPCS: 85014; 85018; 99195 ==

== ENCOUNTER 2023-12-04 12:29 | Outpatient (REF) | payer MEDICARE, SELFPAY | END 2023-12-04 12:30 | disposition home or self-care (01) | LOC: HO.BBR 12:29 | PROVIDERS: PCP Internal Medicine; Visit Provider Internal Medicine Hematology & Oncology | DX: D45 Polycythemia vera (principal) | CPT/HCPCS: 85014 ==

== ENCOUNTER 2023-12-24 12:34 | Outpatient (REF) | payer MEDICARE, SELFPAY | END 2023-12-24 12:35 | disposition home or self-care (01) | LOC: HO.BBR 12:34 | PROVIDERS: PCP Internal Medicine; Visit Provider Internal Medicine Hematology & Oncology | DX: D45 Polycythemia vera (principal) | CPT/HCPCS: 85014 ==

== ENCOUNTER 2024-01-27 13:02 | Outpatient (REF) | payer MEDICARE, SELFPAY | END 2024-01-27 13:03 | disposition home or self-care (01) | LOC: HO.BBR 13:02 | PROVIDERS: PCP Internal Medicine; Visit Provider Internal Medicine Hematology & Oncology | DX: Z13.89 Encounter for screening for other disorder (principal) | CPT/HCPCS: 85014; 85018; 99195 ==

== ENCOUNTER 2024-02-27 12:03 | Outpatient (REF) | payer MEDICARE, SELFPAY | END 2024-02-27 12:04 | disposition home or self-care (01) | LOC: HO.BBR 12:03 | PROVIDERS: PCP Internal Medicine; Visit Provider Internal Medicine Hematology & Oncology | DX: D45 Polycythemia vera (principal) | CPT/HCPCS: 85014; 85018; 99195 ==

== ENCOUNTER 2024-02-28 09:40 | Outpatient (AMB) | payer MEDICARE, SELFPAY ==
--- NOTE | 2024-02-28 09:41 | AM.OFFWIN_ITS ---
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 Intake Note: pt is here for possible uti Patient Tobacco Use Status: Never used Tobacco Allergies No Known Allergies Allergy (Verified 02/28/24 09:42) Do you need a note to return to daycare/school/sports/work: No HPI HPI Comments History of Present Illness Details Patient history of UTIs with increased frequency in urination low back pain no fever PFSH Social History Patient Tobacco Use Status: Never used Tobacco Physical Exam Vital Signs: Last Vital Signs Temp 97.9 F 02/28/24 09:51 Pulse 79 02/28/24 09:51 BP 140/80 H 02/28/24 09:51 Pulse Ox 98 02/28/24 09:51 BMI result Body Mass Index 26.8 Const General: cooperative, healthy appearing, no acute distress and alert Orientation/consciousness: patient oriented x3 Limitations: no limitations HEENT Head: Yes normal to inspection Ears: hearing grossly normal bilaterally General nose exam: Normal external nose present Resp Effort & Inspection: normal respiratory effort and able to speak in complete sentences Cardio Rate: regular rate General: Yes no CVA tenderness Back/Spine/Pelvis Back: no CVA tenderness Skin General skin exam: no rashes or lesions noted Neuro General: patient oriented x3 Extrem General: Yes normal to inspection Results AMB Urinalysis, Automated UA Leukoctes 500 Cipriano/uL Last Edit by Jam Barahona CMA on 02/28/24 09:5 3 UA Nitrite Positive Last Edit by Jam Barahona CMA on 02/28/24 09:53 UA Urobilinogen 0.2 mg/dL Last Edit by Jam Barahona CMA on 02/28/24 09 :53 UA Protein 0 mg/dL Last Edit by Jam Barahona CMA on 02/28/24 09:53 UA pH 8.0 Last Edit by Jam Barahona CMA on 02/28/24 09:53 UA Blood 10 Valerio/uL Last Edit by Jam Barahona CMA on 08/24/24 09:53 UA Specific [place] 1.005 Last Edit by Jam Barahona CMA on 02/28/24 09:53 UA Ketone Negative Last Edit by Jam Barahona CMA on 02/28/24 09:53 UA Bilirubin 0 mg/dL Last Edit by Jam Barahona CMA on 02/28/24 09:53 UA Glucose 0 mg/dL Last Edit by Jam Barahona CMA on 02/28/24 09:53 Results Reviewed Results Reviewed: Laboratory Last Values Urine pH (Auto) 8.0 02/28/24 09:52 Specific [place] (Auto) 1.005 02/28/24 09:52 Urine Protein (Auto) 0 mg/dL 02/28/24 09:52 Glucose (UA)(Auto) 0 mg/dL 02/28/24 09:52 Urine Ketones (Auto) Negative 02/28/24 09:52 Urine Blood (Auto) 10 Valerio/uL 02/28/24 09:52 Urine Nitrite (Auto) Positive 02/28/24 09:52 Urine Bilirubin (Auto) 0 mg/dL 02/28/24 09:52 Urine Urobilinogen (Auto) 0.2 mg/dL 02/28/24 09:52 Leukocyte Esterase (Auto) 500 Cipriano/uL 02/28/24 09:52 Assessment & Plan Assessment & Plan (1) UTI (urinary tract infection): Code(s): N39.0 - Urinary tract infection, site not specified Qualifiers: Urinary tract infection type: acute cystitis Hematuria presence: without hematuria Qualified Code(s): N30.00 - Acute cystitis without hematuria Plan: Symptoms consistent with acute cystitis. Urinalysis positive for leuks and nitrates. Patient has urology follow-up in May resistant to nitrofurantoin and has tolerated Keflex will do Keflex b.i.d. x7 days Plain -Keflex b.i.d. x7 days Orders: Orders AMB Urinalysis Automated Today Z13.9 - Encounter for screening, unspecified Medications: New cephalexin 500 mg PO BID 14 caps 0RF Coding Level of Care Code New Pt Level 4 (73493) Diagnoses Acute cystitis without hematuria N30.00 Urinary tract infection type: acute cystitis Hematuria presence: without hematuria
[2024-02-28 09:51] VITALS: BP 140/80; PULSE 79; TEMP 36.6; O2SAT 98; BMI 26.8
== END 2024-02-28 10:10 | disposition home or self-care (01) ==
PROVIDERS: PCP Internal Medicine; Visit Provider Physician Assistant
DX: Z13.9 Encounter for screening, unspecified (principal); N30.00 Acute cystitis without hematuria
CPT/HCPCS: 81003; 99204

== ENCOUNTER 2024-04-02 12:35 | Outpatient (REF) | payer MEDICARE, SELFPAY | END 2024-04-02 12:36 | disposition home or self-care (01) | LOC: HO.BBR 12:35 | PROVIDERS: PCP Internal Medicine; Visit Provider Internal Medicine Hematology & Oncology | DX: D45 Polycythemia vera (principal) | CPT/HCPCS: 85014 ==

== ENCOUNTER 2024-05-03 12:32 | Outpatient (REF) | payer MEDICARE, SELFPAY | END 2024-05-03 12:33 | disposition home or self-care (01) | LOC: HO.BBR 12:32 | PROVIDERS: PCP Internal Medicine; Visit Provider Internal Medicine Hematology & Oncology | DX: D45 Polycythemia vera (principal) | CPT/HCPCS: 85014; 85018; 99195 ==

== ENCOUNTER 2024-06-07 12:52 | Outpatient (REF) | payer MEDICARE, SELFPAY | END 2024-06-07 12:53 | disposition home or self-care (01) | LOC: HO.BBR 12:52 | PROVIDERS: PCP Internal Medicine; Visit Provider Internal Medicine Hematology & Oncology | DX: D45 Polycythemia vera (principal) | CPT/HCPCS: 85014; 85018; 99195 ==

== ENCOUNTER 2024-07-12 11:54 | Outpatient (REF) | payer MEDICARE, SELFPAY | END 2024-07-12 11:55 | disposition home or self-care (01) | LOC: HO.BBR 11:54 | PROVIDERS: PCP Internal Medicine; Visit Provider Internal Medicine Hematology & Oncology | DX: D45 Polycythemia vera (principal) | CPT/HCPCS: 85014; 99195 ==

== ENCOUNTER 2024-08-13 12:55 | Outpatient (REF) | payer MEDICARE, SELFPAY | END 2024-08-13 12:56 | disposition home or self-care (01) | LOC: HO.BBR 12:55 | PROVIDERS: PCP Internal Medicine; Visit Provider Internal Medicine Hematology & Oncology | DX: D45 Polycythemia vera (principal) | CPT/HCPCS: 85018; 99195 ==

== ENCOUNTER 2024-09-14 12:55 | Outpatient (REF) | payer MEDICARE, SELFPAY ==
--- OUTSIDE RECORDS SUMMARY | 2024-09-14 15:33 | XMS_ITS | Clinical Summary ---
Author Organization [facility] [address] [place] [address] [place] [id number] Phone Care Team Providers Care Wood Heel Flap Trimmer Name Role Phone Poncho Cunningham MD Primary Care Provider [phone] Allergies No known active allergies Medications aspirin 81 mg EC tablet Take 1 tablet (81 mg total) by mouth 1 (one) time each day. Active losartan (COZAAR) 25 mg tablet TAKE 1 TABLET BY MOUTH DAILY 90 tablet 1 4 Active loperamide (Imodium A-D) 2 mg tablet Take 1 tablet (2 mg total) by mouth 4 (four) times a day if needed for diarrhea. 60 tablet 11 5 Active estradioL (ESTRACE) 0.01 % (0.1 mg/gram) vaginal cream Apply 1 g vaginally MWF 42.5 g 1 5 Active Active Problems Problem Noted Date Diagnosed Date Hereditary hemochromatosis 04/04/2022 Polycythemia vera 03/28/2020 Overview (03/23/2024): The patient was diagnosed with polycythemia vera in 2006 when she lived in [place]. Initial hemoglobin was greater than 18 g, erythropoietin level was low, B12 was elevated and JAK2 mutation analysis was positive. Platelets were elevated. She did not have splenomegaly. She was treated with phlebotomies. She has never been treated with myelosuppressive therapy. Cholelithiases 08/09/2015 Overview (03/23/2024): Largely asymptomatic Hyperlipidemia 03/30/2014 Overview (03/23/2024): By previous PCP, overall good profile, particularly with /after good weight reduction Osteoporosis 03/30/2014 Overview (03/23/2024): Pt was on fosamax, Per report 05/17/2013, satisfactory preservation of BMD Encounters Date Type Department Care Team Description 07/26/2024 9:40 AM EST Office Visit Gastroenterology - [place] [address] [place] [address] Jeremi Shaffer PA Passage of loose stools (Primary Dx); Functional diarrhea; Polycythemia vera (CMS/HCC) from Last 3 Months Surgical History Surgery Date Site/Laterality Comments COLONOSCOPY 03/2020 PROCEDURE:COLONOSCOPY OTHER SURGICAL HISTORY PROCEDURE: OK MASTOPEXY; COMMENT: breast lift COLONOSCOPY 2005 PROCEDURE: HISTORICAL COLONOSCOPY; COMMENT: Date approx, done in [place], negative exam COLONOSCOPY 2015 PROCEDURE: HISTORICAL COLONOSCOPY; COMMENT: 5 mm cecal polyp: tubular adenoma. COLONOSCOPY 03/15/2020 PROCEDURE: HISTORICAL COLONOSCOPY; COMMENT: No polyps, no colon cancer screening needed for 10 years. OTHER SURGICAL HISTORY 2007 Bilateral PROCEDURE: IMPLANT BREAST SILICONE/EQ; COMMENT: first set 1977, replaced 2007ish OTHER SURGICAL HISTORY 1989 Left PROCEDURE: OK BX BREAST W/DEVICE 1ST LESION STEREOTACTIC GUID; COMMENT: b9 Medical History Medical History Date Comments Polycythemia vera (CMS/HCC) DX:P olycythemia vera (HCC) Polycythemia vera (CMS/HCC) DX:P olycythemia vera (HCC) Hemochromatosis carrier DX:Hemoc hromatosis carrier Menopausal state DX:Menopausal s ng Vitamin D deficiency 03/30/2014 DX:Vitamin D deficiency Osteoporosis 03/30/2014 DX:Osteoporosis; COMMENT: Pt was on fosamax, Per report 05/17/2013, satisfactory preservation of BMD Cholelithiases 08/09/2015 DX:Cholelithiase s; COMMENT: Largely asymptomatic Hyperlipidemia 03/30/2014 DX:Hyperlipidemi a; COMMENT: By previous PCP, overall good profile, particularly with /after good weight reduction Leukocytosis DX:Leukocytosis Polycythemia DX:Polycythemia Gallstones DX:Gallstones Passage of loose stools DX:Passa ge of loose stools Irritable bowel syndrome DX:Irri table bowel syndrome Family History Medical History Relation Name Comments Breast cancer Aunt mat 40 Relation Name Status Comments Aunt mat 40 Social History Tobacco Use Types Packs/Day Years Used Date Smoking Tobacco: Never Smokeless Tobacco: Never Tobacco Cessation:Counseling Given: Not Answered Alcohol Use Standard Drinks/Week Comments Yes 0 (1 standard drink = 0.6 oz pur e alcohol) occ Comments No Sex and Gender Information Value Date Recorded Sex Assigned at Not on file Legal Sex Female 3:16 AM EST Gender Identity Not on file Sexual Orientation Not on file Obstetrics History Last Filed Vital Signs Vital Sign Reading Time Taken Comments Blood Pressure 116/66 07/26/2024 9:27 AM EST Pulse 84 07/26/2024 9:27 AM EST Temperature 36.3 ??C (97.4 ??F) 05/11/2024 9:20 AM ES T Respiratory Rate 14 06/15/2024 10:04 AM EST Oxygen Saturation 98% 05/11/2024 9:20 AM EST Inhaled Oxygen Concentration - - Weight 71.7 kg (158 lb) 07/26/2024 9:27 AM EST Height 167.6 cm (5' 6 ) 07/26/2024 9:27 AM EST Body Mass Index 25.5 07/26/2024 9:27 AM EST Plan of Treatment Upcoming Encounters Date Type Department Care Team (Late st Contact Info) Description 09/23/2024 10:30 AM EDT Office Visit [facility] Hematology Oncology [address] [place] [phone] Kyle Acosta MD [address] [place] [phone] 10/14/2024 1:00 PM EDT Nutrition Internal Medicine - [place] [address] [facility] [address] [place] [address] Dara Easton, DEEPTI [address] [place] [address] 11/15/2024 2:00 PM EDT Office Visit Adult Medicine [address] [phone] Poncho Cunningham MD [address] [place], [place] 12/22/2024 10:30 AM EDT Office Visit Urogynecology - [place] [address] [place] [address] Erika Bowman MD [address] [facility] [address] [place] [address] Health Maintenance Due Date Last Done Comments Hepatitis A Vaccines (1 of 2 - Risk 2-dose series) 1966 Zoster Vaccines (1 of 2) 1966 Hepatitis B Vaccines (1 of 3 - Risk 3-dose series) 2007 COVID-19 Vaccine (3 - Moderna risk series) 12/25/2020 11/27/2020, 10/30/2020 RSV Immunization Patients 60+ Years Old (1 - 1-dose 75+ series) 2022 Cholesterol Screening (Lipid Panel) 06/13/2022 Depression Screening 06/13/2022 Falls Risk Assessment 06/13/2022 Hepatitis C Screening 06/13/2022 Medicare Annual Wellness Visit 06/13/2022 Social Influencers of Health Screening 06/13/2022 DTaP,Tdap,and Td Vaccines (2 - Td or Tdap) 03/08/2024 03/08/2014 Hypertension/CHF/CAD Annual BMP Blood Test 06/24/2025 06/24/2024, 04/20/2024 Osteoporosis Screening (Bone Density Screening) 04/30/2034 04/30/2024, 04/30/2024, 04/26/2022, Additional history exists Pneumococcal Vaccine: 50+ Years Completed 04/16/2017, 02/26/2016, 03/08/2014 Influenza Vaccine Completed 05/07/2024, , 03/01/2020, Additional history exists HIB Vaccines Aged Out No longer eligi ble based on patient's age to complete this topic HPV Vaccines Aged Out No longer eligi ble based on patient's age to complete this topic IPV Vaccines Aged Out No longer eligi ble based on patient's age to complete this topic MMR Vaccines Aged Out No longer eligi ble based on patient's age to complete this topic Meningococcal ACWY Vaccine Aged Out N o longer eligible based on patient's age to complete this topic Meningococcal B Vacine Aged Out No lo nger eligible based on patient's age to complete this topic RSV Immunization Patients Under 20 months Aged Out No longer eligible based on patient's age to complete this topic Varicella Vaccines Aged Out No longer eligible based on patient's age to complete this topic Procedures Procedure Name Priority Date/Time Associated Diagnosis Comments CULTURE URINE Routine 08/27/2024 12:24 PM EST Recurrent UTI CULTURE URINE Routine 07/19/2024 12:21 PM EST Recurrent UTI CBC WITH AUTO DIFFERENTIAL Routine 06/24/2024 10:35 AM EST 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 (CMS/HCC) IRON AND TIBC Routine 06/24/2024 10:35 AM EST 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 (CMS/HCC) FERRITIN Routine 06/24/2024 10:35 AM EST 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 (CMS/HCC) CBC AND DIFFERENTIAL Routine 06/24/2024 10:35 AM EST 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 Culture, Urine No growth 08/28/2024 8:53 AM [facility] Urine Urine specimen obtained by clean catch procedure / Unknown Non-blood Collection / Unknown 08/27/2024 12:24 PM EST 08/27/2024 12:24 PM EST us Erika Bowman MD LAB MICROBIOLOGY - GENERAL TOD AZAR Final Result [facility] [address] [place] [address], * (ABNORMAL) CBC auto differential (06/24/2024 10:35 AM EST) [facility] WBC 22.8(H) 4.8 - 10.8 K/mcL LAB HEMETOLOGY METHOD 06/24/2024 11:37 AM [facility] RBC 6.90(H) 3.80 - 4.80 M/mcL LAB HEMETOLOGY METHOD 06/24/2024 11:37 AM [facility] Hemoglobin 12.5 11.5 - 16.0 g/dL LAB HEMETOLOGY METHOD 06/24/2024 11:37 AM [facility] Hematocrit 46.2 35.0 - 47.0 % LAB HEMETOLOGY METHOD 06/24/2024 11:37 AM [facility] MCV 67.3(L) 79.0 - 98.0 FL LAB HEMETOLOGY METHOD 06/24/2024 11:37 AM [facility] MCH 18.2(L) 27.0 - 32.0 pcg LAB HEMETOLOGY METHOD 06/24/2024 11:37 AM [facility] MCHC 27.1(L) 32.0 - 37.0 g/dL LAB HEMETOLOGY METHOD 06/24/2024 11:37 AM [facility] RDW 20.4(H) 11.0 - 15.0 % LAB HEMETOLOGY METHOD 06/24/2024 11:37 AM [facility] Platelets 755(H) 130 - 400 K/mcL LAB HEMETOLOGY METHOD 06/24/2024 11:37 AM [facility] MPV 9.7 7.0 - 11.0 FL LAB HEMETOLOGY METHOD 06/24/2024 11:37 AM [facility] NRBC 0.0 <1.0 % LAB HEMETOLOGY METHOD 06/24/2024 11:37 AM [facility] NRBC Absolute 0.00 <0.10 K/mcL LAB HEMETOLOGY METHOD 06/24/2024 11:37 AM [facility] Neutrophils Relative 79.5 % LAB HEMETOLOGY METHOD 06/24/2024 11:37 AM [facility] Lymphocytes Relative 11.0 % LAB HEMETOLOGY METHOD 06/24/2024 11:37 AM [facility] Monocytes Relative 3.9 % LAB HEMETOLOGY METHOD 06/24/2024 11:37 AM [facility] Eosinophils Relative 2.5 % LAB HEMETOLOGY METHOD 06/24/2024 11:37 AM [facility] Basophils Relative 1.0 % LAB HEMETOLOGY METHOD 06/24/2024 11:37 AM [facility] Immature Granulocytes Relative 2.1 % LAB HEMETOLOGY METHOD 06/24/2024 11:37 AM [facility] Neutrophils Absolute 18.13(H) 1.50 - 7.00 K/mcL LAB HEMETOLOGY METHOD 06/24/2024 11:37 AM [facility] Lymphocytes Absolute 2.51 1.00 - 5.00 K/mcL LAB HEMETOLOGY METHOD 06/24/2024 11:37 AM [facility] Monocytes Absolute 0.90 0.20 - 1.00 K/mcL LAB HEMETOLOGY METHOD 06/24/2024 11:37 AM EST [facility] Eosinophils Absolute 0.57(H) 0.00 - 0.50 K/[facility] HEMETOLOGY METHOD 06/24/2024 11:37 AM EST [facility] Basophils Absolute 0.23(H) 0.00 - 0.20 K/[facility] HEMETOLOGY METHOD 06/24/2024 11:37 AM EST [facility] Immature Granulocytes Absolute 0.48(H) 0.00 - 0.03 K/[facility] HEMETOLOGY METHOD 06/24/2024 11:37 AM EST [facility] Blood Venous blood specimen / Unknown Venipuncture / Unknown 06/24/2024 10:35 AM EST 06/24/2024 11:16 AM EST Kyle Acosta MD LAB BLOOD ORDERABLES Final Result [facility] [address] [place] [address], * (ABNORMAL) Iron and TIBC (06/24/2024 10:35 AM EST) Iron 23(L) 40 - 150 mcg/dL LAB CHEMISTRY METHOD 06/24/2024 11:56 AM EST [facility] TIBC 479(H) 250 - 450 mcg/dL LAB CHEMISTRY METHOD 06/24/2024 11:56 AM EST [facility] Iron Saturation 5(L) 15 - 50 % LAB CHEMISTRY METHOD 06/24/2024 11:56 AM EST [facility] Blood Venous blood specimen / Unknown Venipuncture / Unknown 06/24/2024 10:35 AM EST 06/24/2024 11:15 AM EST Kyle Acosta MD LAB BLOOD ORDERABLES Final Result Performing Organization Address [facility]/ZIP Co de Phone Number [facility] [address] [place] [address], [place] [phone] * (ABNORMAL) Ferritin (06/24/2024 10:35 AM EST) [facility] Ferritin 5(L) 8 - 252 ng/mL LAB CHEMISTRY METHOD 06/24/2024 11:58 AM EST [facility] Blood Venous blood specimen / Unknown Venipuncture / Unknown 06/24/2024 10:35 AM EST 06/24/2024 11:15 AM EST Kyle Acosta MD LAB BLOOD ORDERABLES Final Result Performing Organization Address [facility] Co de Phone Number [facility] [address] [place] [address], [place] [phone] * Comprehensive metabolic panel (06/24/2024 10:35 AM EST) [facility] Sodium 137 133 - 145 mmol/L LAB CHEMISTRY METHOD 06/24/2024 11:56 AM [facility] Potassium 4.5 3.5 - 5.5 mmol/L LAB CHEMISTRY METHOD 06/24/2024 11:56 AM [facility] Chloride 100 96 - 110 mmol/L LAB CHEMISTRY METHOD 06/24/2024 11:56 AM [facility] CO2 29 21 - 32 mmol/L LAB CHEMISTRY METHOD 06/24/2024 11:56 AM [facility] Anion Gap 8 3 - 11 LAB CHEMISTRY METHOD 06/24/2024 11:56 AM [facility] Glucose 86 70 - 100 mg/dL LAB CHEMISTRY METHOD 06/24/2024 11:56 AM [facility] BUN 10 5 - 25 mg/dL LAB CHEMISTRY METHOD 06/24/2024 11:56 AM [facility] Creatinine 0.86 0.50 - 1.10 mg/dL LAB CHEMISTRY METHOD 06/24/2024 11:56 AM [facility] eGFR 70 >=60 mL/min/1. 73m2 LAB CHEMISTRY METHOD 06/24/2024 11:56 AM [facility] Comment:Calculation based on the??Chronic Kidney Disease Epidemiology Collaboration (CKD-EPI) equation refit??without adjustment for race. BUN/Creatinine Ratio 11.6 LAB CHEMISTRY METHOD 06/24/2024 11:56 AM [facility] Calcium 9.5 8.5 - 10.5 mg/dL LAB CHEMISTRY METHOD 06/24/2024 11:56 AM [facility] AST (SGOT) 28 10 - 42 unit/L LAB CHEMISTRY METHOD 06/24/2024 11:56 AM [facility] ALT (SGPT) 20 10 - 60 unit/L LAB CHEMISTRY METHOD 06/24/2024 11:56 AM [facility] Alkaline Phosphatase 119 42 - 121 unit/L LAB CHEMISTRY METHOD 06/24/2024 11:56 AM [facility] Total Protein 7.4 6.0 - 8.0 g/dL LAB CHEMISTRY METHOD 06/24/2024 11:56 AM [facility] Albumin 4.1 3.2 - 5.0 g/dL LAB CHEMISTRY METHOD 06/24/2024 11:56 AM [facility] Total Bilirubin 0.9 0.0 - 1.4 mg/dL LAB CHEMISTRY METHOD 06/24/2024 11:56 AM [facility] Blood Venous blood specimen / Unknown Venipuncture / Unknown 06/24/2024 10:35 AM EST 06/24/2024 11:15 AM EST us Kyle Acosta MD LAB BLOOD ORDERABLES Final Result [facility] [address] [place], [place] [address] [phone] * DXA BONE DENSITY STUDY 1+ DEVAN PEGUERO SKEL (04/30/2024 10:38 AM EDT) Anatomical Region Laterality Modality Bone Densitometr y 10/13/2023 11:2 3 AM EDT Narrative 05/03/2024 8:25 AM EDT BONE DENSITY SCAN (DEXA): FINDINGS: Lumbar Spine T-score is -0.6. ?? (SD relative to 20-29 y/o adult) Z-score is 1.9. ??(SD relative to age matched peers) This is considered normal by WHO criteria. Left Hip T-score is -1.3. Z-score is 0.9. This is considered osteopenia by WHO criteria. Comparison exam(s): 04/26/2022. ??No statistically significant change in bone mineral density. IMPRESSION: IMPRESSION: Osteopenia by WHO criteria. This patient has an 18% risk of major osteoporotic fracture and a 3.2% risk of hip fracture over the next 10 years. (World Health Organization Fracture Risk Assessment) The [facility] Department of Internal Medicine recommends using National Osteoporosis Foundation (NOF) guidelines in treatment decisions related to osteoporosis. NOF guidelines suggest considering treatment for postmenopausal women and men aged 50 or older presenting with the following: History of hip or vertebral fracture. T-score = -2.5 (DXA) at the femoral neck, total hip, or spine, after appropriate evaluation to exclude secondary causes. Low bone mass (T-score between -1.0 and -2.5 at the femoral neck or spine) AND a 10-year probability of a hip fracture = 3% OR a 10-year probability of a major osteoporosis-related fracture = 20% based on the [place]-adapted WHO algorithm Please note that all treatment decisions require clinical judgment and consideration of individual patient factors, including patient preferences, co-morbidities, previous drug use, risk factors not captured in the FRAX model (e.g., frailty, falls, vitamin D deficiency, increased bone turnover, interval significant decline in bone density) and possible under- or over-estimation of fracture risk by FRAX. Optional alternative screening schedule based on david Rednon., [facility] July 25, 2011 for patients with osteopenia (based on hip BMD T-score) is as follows: * ??advanced osteopenia (T scores -2.00 to -2.49), BMD testing every year * ??moderate osteopenia (T scores -1.50 to -1.99), BMD testing every 5 years mild osteopenia or normal BMD (T scores -1.50 and higher), BMD testing every 15 years Procedure Note Clau Garcia MD - 05/08/2024 BONE DENSITY SCAN (DEXA): FINDINGS: Lumbar Spine T-score is -0.6. (SD relative to 20-29 y/o adult) Z-score is 1.9. (SD relative to age matched peers) This is considered normal by WHO criteria. Left Hip T-score is -1.3. Z-score is 0.9. This is considered osteopenia by WHO criteria. Comparison exam(s): 04/26/2022. No statistically significant change inbone mineral density. IMPRESSION: IMPRESSION: Osteopenia by WHO criteria. This patient has an 18% risk of majorosteoporotic fracture and a 3.2% risk of hip fracture over the next 10 years. (World HealthOrganization Fracture Risk Assessment) The [facility] Department of Internal Medicine recommendsusing National Osteoporosis Foundation (NOF) guidelines in treatment decisions related toosteoporosis. NOF guidelines suggest considering treatment for postmenopausal women and menaged 50 or older presenting with the following: History of hip or vertebral fracture. T-score = -2.5 (DXA) at the femoral neck, total hip, or spine, afterappropriate evaluation to exclude secondary causes. Low bone mass (T-score between -1.0 and -2.5 at the femoral neck or spine)AND a 10-year probability of a hip fracture = 3% OR a 10-year probability of a majorosteoporosis-related fracture = 20% based on the [place]-adapted WHO algorithm Please note that all treatment decisions require clinical judgment andconsideration of individual patient factors, including patient preferences, co- morbidities,previous drug use, risk factors not captured in the FRAX model (e.g., frailty, falls, vitaminD deficiency, increased bone turnover, interval significant decline in bone density) andpossible under- or over-estimation of fracture risk by FRAX. Optional alternative screening schedule based on david Rendon., NEJMJanuary 2011 for patients with osteopenia (based on hip BMD T-score) is as follows: * advanced osteopenia (T scores -2.00 to -2.49), BMD testing every year * moderate osteopenia (T scores -1.50 to -1.99), BMD testing every 5years mild osteopenia or normal BMD (T scores -1.50 and higher), BMD testingevery 15 years Poncho Cunningham MD IMG DXA PROCEDURES Final Result from Last 3 Months or Most Recently Relevant to Health Maintenance Insurance [employer] - [place] MEDICARE ADVANTAGE Care Teams Wood Heel Flap Trimmer Relationship Specialty Start Date End Date Poncho Cunningham MD [address] [place] [address] PCP - General Internal Medicine 03/01/14
--- OUTSIDE RECORDS SUMMARY | 2024-09-14 15:33 | XMS_ITS | Clinical Summary ---
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 0 Active estradiol (ESTRACE) 0.5 MG tablet Take by mouth. 0 Active losartan (COZAAR) tablet 25 mg Take 1 tablet (25 mg total) by mouth daily. 0 Active Active Problems Problem Noted Date Diagnosed Date Hereditary hemochromatosis 04/04/2022 Polycythemia vera 03/28/2020 Overview: The patient was diagnosed with polycythemia vera in 2006 when she lived in [place]. Initial hemoglobin was greater than 18 g, erythropoietin level was low, B12 was elevated and JAK2 mutation analysis was positive. Platelets were elevated. She did not have splenomegaly. She was treated with phlebotomies. She has never been treated with myelosuppressive therapy. Cholelithiases 08/09/2015 Overview: Overview: Largely asymptomatic Hyperlipidemia 03/30/2014 Overview: Overview: By previous PCP, overall good profile, particularly with /after good weight reduction Osteoporosis 03/30/2014 Overview: Overview: Pt was on fosamax, Per report 05/17/2013, satisfactory preservation of BMD Social History Tobacco Use Types Packs/Day Years Used Date Smoking Tobacco: Never Smokeless Tobacco: Never Alcohol Use Standard Drinks/Week Comments No 0 (1 standard drink = 0.6 oz pur e alcohol) Sex and Gender Information Value Date Recorded Sex Assigned at Not on file Gender Identity Not on file Sexual Orientation Not on file Job Start Date Occupation Industry Not on file Not on file Not on file Last Filed Vital Signs Vital Sign Reading Time Taken Comments Blood Pressure 137/60 03/11/2024 10:59 AM EDT Pulse 80 03/11/2024 10:59 AM EDT Temperature 36.2 ??C (97.1 ??F) 03/11/2024 1 0:59 AM EDT Respiratory Rate - - Oxygen Saturation 97% 03/11/2024 10: 59 AM EDT Inhaled Oxygen Concentration - - Weight 71.6 kg (157 lb 12.8 oz) 024 10:59 AM EDT Height 167.6 cm (5' 6 ) 04/17/2023 11:1 9 AM EDT Body Mass Index 25.47 04/17/2023 11:19 AM EDT Plan of Treatment Health Maintenance Due Date Last Done Comments Hepatitis C Screening 1945 COVID-19 Vaccine (#1) 02/17/1952 Depression Screening 1959 Preventative Health Evaluation 1965 Shingrix-Zoster Vaccine (1 of 2) 1966 Fall Risk Assessment 02/17/2012 Osteoporosis Screening (DEXA Scan) 02/17/2012 RSV Adult > 60+ Yrs or (1 - 1-dose 75+ series) 2022 Influenza Vaccine (#1) 2024 3, 04/21/2019, 06/25/2018, Additional history exists DTap / Tdap / Td (2 - Td or Tdap) 03/08/2024 03/08/2014 Pneumococcal Vaccine Completed 04/16/2017, 02/26/2016, 03/08/2014 Hepatitis B Vaccines Aged Out No long er eligible based on patient's age to complete this topic RSV Ped < 20 months Aged Out No longe r eligible based on patient's age to complete this topic Care Teams Instrumentation And Controls Designer Relationship Specialty Start Date End Date Poncho Cunningham MD PCP - General Internal Medicine 03/24/20
== END 2024-09-14 12:56 | disposition home or self-care (01) ==
LOC: HO.BBR 12:55
PROVIDERS: PCP Internal Medicine; Visit Provider Internal Medicine Hematology & Oncology
DX: D45 Polycythemia vera (principal)
CPT/HCPCS: 85014; 99195

== ENCOUNTER 2025-01-01 10:36 | Outpatient (AMB) | payer MEDICARE, SELFPAY ==
[2025-01-01 10:38] VITALS: BP 130/80; PULSE 87; O2SAT 98
--- NOTE | 2025-01-01 10:38 | AM.OFFWIN_ITS ---
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 She notes she has numerous intolerances to medications and antibiotics. Has done well with cephalexin in the past PFSH Social History Patient Tobacco Use Status: Never used Tobacco Review of Systems Const Reports chills, Denies fatigue, Denies fever(s), Denies headache(s) and Denies weakness ENT Denies dizziness and Denies headache(s) Card Denies dyspnea Resp Denies cough, Denies dyspnea, Denies wheezing and Denies other ( shortness of breath) Details: see HPI Musc Denies numbness and Denies tingling Neuro Denies dizziness, Denies headache(s), Denies numbness, Denies tingling, Denies paresthesias and Denies weakness Psych Denies anxiety and Denies depression Endo Denies fatigue Aller/Immun Denies wheezing Physical Exam Vital Signs: Last Vital Signs Pulse 87 01/01/25 10:38 BP 130/80 01/01/25 10:38 Pulse Ox 98 01/01/25 10:38 Oxygen Delivery Method Room Air 01/01/25 10:38 Const General: no acute distress and well developed Nutritional Appearance: well nourished Orientation/consciousness: patient oriented x3 HEENT Head: Yes normocephalic and Yes atraumatic Eyes General: appearance normal, both eyes and all related structures Pupils: Equal, round and reactive pupils present EOM: EOMs intact bilaterally Resp Effort & Inspection: normal respiratory effort Back/Spine/Pelvis Other: no CVA TTP Neuro General: patient oriented x3 and gait normal Cranial nerves: Yes Equal, round and reactive pupils present Psych Affect: normal affect Results AMB Urinalysis, Automated UA Leukoctes 500 Cipriano/uL Last Edit by Jam Barahona CMA on 01/01/25 11:0 2 UA Nitrite Positive Last Edit by Jam Barahona CMA on 01/01/25 11:02 UA Urobilinogen 4 mg/dL Last Edit by Jam Barahona CMA on 01/01/25 11:0 2 UA Protein 0 mg/dL Last Edit by Jam Barahona CMA on 01/01/25 11:02 UA pH 6.5 Last Edit by Jam Barahona CMA on 01/01/25 11:02 UA Blood 80 Valerio/uL Last Edit by Jam Barahona CMA on 01/01/25 11:02 UA Specific [place] 1.010 Last Edit by Jam Barahona CMA on 01/01/25 11:02 UA Ketone Negative Last Edit by Jam Barahona CMA on 01/01/25 11:02 UA Bilirubin 2 mg/dL Last Edit by Jam Barahona CMA on 01/01/25 11:02 UA Glucose 0 mg/dL Last Edit by Jam Barahona CMA on 01/01/25 11:02 Assessment & Plan Assessment & Plan (1) UTI (urinary tract infection): Code(s): N39.0 - Urinary tract infection, site not specified Qualifiers: Urinary tract infection type: acute cystitis Hematuria presence: without hematuria Qualified Code(s): N30.00 - Acute cystitis without hematuria Plan patient with history of frequent urinary tract infections and convincing presentation. urine dip suspicious for UTI as well She notes numerous intolerances to medications and antibiotics but has done well with cephalexin in the past script sent for cephalexin hydrate well will send urine for culture and sensitivities to ensure a good match Orders: Orders UA CC w/rflx Micro + Cult Today N30.00 - Acute cystitis without hematuria, Z00.00 - Encounter for general adult medical examination without abnormal findings AMB Urinalysis Automated Today Z13.9 - Encounter for screening, unspecified Medications: New cephalexin 500 mg PO Q12H 10 days 20 caps 0RF cephalexin 500 mg PO Q12H 14 caps 0RF 7 days Coding Level of Care Code Est Pt Level 3 (70877) Diagnoses Acute cystitis without hematuria N30.00 Urinary tract infection type: acute cystitis Hematuria presence: without hematuria
== END 2025-01-01 11:33 | disposition home or self-care (01) ==
PROVIDERS: PCP Internal Medicine; Visit Provider Family Medicine
DX: N30.00 Acute cystitis without hematuria (principal); Z13.9 Encounter for screening, unspecified

== ENCOUNTER 2025-01-01 10:36 | Outpatient (REF) | payer MEDICARE, SELFPAY ==
[2025-01-01 14:14] LABS: Appearance Urine Hazy; Color Urine Orange; Leukocyte Esterase Urine Large (3+) (Negative); PH 6.5 (5.0-9.0); Specific Gravity - Urine <= 1.005 (1.005-1.025); UMIC TRIGGER UACC YES; Urine Blood Small (1+) (Negative); Urine Ketones Negative (Negative)
[2025-01-01 14:20] LABS: Bacteria Urine None Seen (None Seen); Hyaline Casts Urine 0-2 /LPF (0-2); Squamous Epithelial Cell Urine 0-2 /HPF (0-2); UACC Culture Trigger YES; WBC Urine >50 /HPF (0-5)
== END 2025-01-01 10:37 | disposition home or self-care (01) ==
LOC: HO.LNP 10:36
PROVIDERS: PCP Internal Medicine; Visit Provider Family Medicine
DX: N30.00 Acute cystitis without hematuria (principal)
CPT/HCPCS: 81001; 81003; 87086; 87088; 87186; 99212